=== PATIENT | male | born 1990 | race Caucasian/White ===

== ENCOUNTER 2018-03-08 14:52 | Emergency (ER) | payer SELFPAY ==
[2018-03-08] MEDS ORDERED: Ondansetron ODT 4 MG TAB ONE (15:27)
[2018-03-08 15:51] LABS: #Eosinphils 0.1 thou/uL (0.0-0.7); #Lymphocytes 1.8 thou/uL (1.20-3.40); #Monocytes 0.9 thou/uL (0.11-0.59); #Neutrophils 8.2 thou/uL (1.40-6.50); %Basophils 0.3 % (0.0-1.0); %Eosinophils 0.5 % (0.0-10.0); %Lymphocytes 16.6 % (21.0-51.0); %Neutrophils 74.5 % (42.0-75.0); Hemoglobin 17.6 g/dL (14.0-18.0); Mean Corpuscular HGB CONC 33.4 g/dL (32.0-36.0); Mean Corpuscular Hemoglobin 30.1 pg (27.0-31.0); Mean Corpuscular Volume 89.9 fL (78.0-98.0); Mean Platelet Volume 8.5 fL (7.4-10.4); Platelet Count 244 thou/uL (130-400); RBC Distribution Width 12.5 % (11.5-14.5); Red Blood Cell (RBC) Count 5.85 mill/uL (4.70-6.10); White Blood Cell (WBC) Count 11.1 thou/uL (4.8-10.8)
[2018-03-08] MEDS ORDERED: ISOVUE-370 76%-LOCM 1 ML ONE (15:58)
[2018-03-08 16:16] LABS: Anion Gap 12 mmol/L (10-20); BUN (Urea Nitrogen) 6 mg/dL (8.9-20.6); Calc. Creatinine Clearance 0 mL/min (70-130); Calcium 9.7 mg/dL (7.8-10.44); Carbon Dioxide 26 mmol/L (22-29); Chloride 104 mmol/L (98-107); Estimated GFR-MDRD Greater than 90; Glucose 92 mg/dL (70-105); Potassium 3.4 mmol/L (3.5-5.1); Sodium 139 mmol/L (136-145)
--- NOTE | 2018-03-08 16:40 | CT ---
CT OF THE ABDOMEN AND PELVIS WITH IV CONTRAST: 03/08/18 PROVIDED CLINICAL HISTORY: Rectal pain. FINDINGS: The visualized lung bases are free of significant opacity. The liver, spleen, pancreas, kidneys and adrenal glands demonstrate an unremarkable CT appearance. There is no bowel dilatation, inflammatory fat stranding, free fluid or free air apparent within the abdomen. The appendix appears normal. There is a fluid collection present within the soft tissues at the inferior aspect of the cleft in the region of the anus. This measures approximately 3.8 cm in greatest transverse dimension and a bout 2.7 cm in craniocaudal dimension. There is mild surrounding fat stranding. The ischiorectal vipin a fat appears normal. The osseous structures demonstrate no concerning lytic or blastic lesions. IMPRESSION: Findings compatible with 3.8 cm perianal abscess. POS: [facility]IH
[2018-03-08] MEDS ORDERED: Lidocaine 1% w/Epinephrine 1:100K 20 ML VIAL ONE (18:28)
--- NOTE | 2018-03-09 00:18 | CON ---
DATE OF CONSULTATION: 03/08/2018 SURGICAL CONSULATION AND PROCEDURE NOTE CONSULTING PHYSICIAN: Bill Barbour PA-C REASON FOR CONSULTATION: Perirectal abscess. HISTORY OF PRESENT ILLNESS: The patient is a 27-year-old white male. He gives an unusual history of perirectal pain about 4 months ago. He states that he was seen at this facility and given intraveno us antibiotics as well as oral antibiotics with resolution of his painful problems after a week or so . He notes no subsequent problems in the past 4 months. About 4 days ago, he again began experienci ng perirectal pain. He was seen at a hospital in [place] and was given a prescription for Cipro. Barb guillaume notes that this has not made any favorable change and he presented to this emergency room for evalu ation. A CT scan was obtained revealing findings consistent with a perirectal abscess. He also had leukocytosis on his laboratory studies. I was consulted for further management. PAST MEDICAL HISTORY: Negative. PAST SURGICAL HISTORY: Tonsillectomy and ear tubes. ALLERGIES: No known drug allergies. MEDICATIONS: Prescription medications, nothing other than Cipro. PRIMARY CARE PHYSICIAN: None. PERSONAL AND SOCIAL HISTORY: He is the process of getting . His young daughter is with him as is his mother. He currently lives with his mother in [place]. 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 He does smoke at least a half pack of cigarettes per day. REVIEW OF SYSTEMS: Otherwise unremarkable. PHYSICAL EXAMINATION: Full physical examination was performed without findings of significant abnorm ality including heart, lungs, and abdomen. Rectal examination reveals an erythematous fluctuant area at about the 10 o'clock radian. There was some associated induration and the area is very tender. He has no other area of tenderness in the perirectal tissue. Digital rectal examination reveals no f ocal tenderness internally nor is there any mass. ASSESSMENT: The patient with obvious perirectal abscess. PLAN: Incision and drainage. I discussed this with the patient, the procedure as well as potential risks, and he agrees to proceed at this time. PROCEDURE PREOPERATIVE DIAGNOSIS: Perirectal abscess, anterior into the right of midline. POSTOPERATIVE DIAGNOSIS: Perirectal abscess, anterior into the right of midline. PROCEDURE PERFORMED: Incision and drainage of perirectal abscess. SURGEON: Sergio Padilla MD ASSISTANT PROFESSOR OF EDUCATION: Saray Varela, medical student. ANESTHESIA: 1% lidocaine with epinephrine. INDICATIONS: As above. DESCRIPTION OF PROCEDURE: Written informed consent was obtained. The area was prepped with alcohol, trimmed of hair, locally anesthetized circumferentially with 1% lidocaine with epinephrine. Stab in cision was created overlying the area of fluctuance with immediate egress of thin purulent fluid. Flynn rprisingly, there was no foul smell associated with it. I was able to track the abscess cavities. I t extended inwards towards the anal verge, as well as somewhat deeply within the soft tissue, but ext ernal to the sphincter mechanism. I unroofed significant amount of skin over this. Additional local anesthetic was infiltrated as necessary to maintain complete anesthesia. After all purulence was ex pressed and the area was widely opened and loculations were broken, the wound was cleansed and then p acked with peroxide moistened gauze. Dry gauze dressing was placed externally. There were no compli cations. The patient tolerated the procedure well. He is instructed in sitz baths several times per day. He will not need antibiotics at this point. I would recommend sitz baths and avoidance of constipation. He will be given a prescription for trama dol to help him with his discomfort. He expresses desire to avoid Tylenol #3.
== END 2018-03-08 19:35 | disposition home or self-care (01) ==
LOC: ERS 14:52
DX: K61.1 Rectal abscess (principal); F17.210 Nicotine dependence, cigarettes, uncomplicated
CPT/HCPCS: 46040; 74177; 80048; 85025; 96374; 96376; J2001; J2270; Q0162

== ENCOUNTER 2018-05-28 15:23 | Emergency (ER) | payer SELFPAY | END 2018-05-28 16:16 | disposition home or self-care (01) | LOC: ERS 15:23 | DX: K61.1 Rectal abscess (principal); F17.210 Nicotine dependence, cigarettes, uncomplicated | CPT/HCPCS: 99283 ==